=== PATIENT | female | born 1975 | race Hispanic/Latino ===

== ENCOUNTER 2020-10-01 13:43 | Outpatient (CLI) | payer OTHER, SELFPAY ==
--- NOTE | ~2020-10-01 | MR_ITS ---
EXAMINATION: MR knee LT wo con DATE: 10/01/2020 14:56 INDICATION: Left knee pain TECHNIQUE: Magnetic resonance imaging (MRI) of the left knee was performed without intravenous contra st. Sequences included coronal PD-weighted FSE, coronal PD-weighted FS FSE, sagittal T2-weighted FSE , sagittal PD-weighted FS FSE and axial PD weighted fat saturated FSE. COMPARISON: Right knee radiographs dated 09/27/2020 FINDINGS: Osseous/other: There is prominent metallic magnetic field artifact centered around antegrade intramedullary zenaida in t he distal metaphyseal region of the femur. Small geographic regions of red marrow reexpansion in the metaphyseal region of the proximal tibia. Marrow signal is otherwise normal with no reactive edema, f racture or pathologic marrow replacing process. Medial compartment: Longitudinal horizontal tear extending to the inferior articular surface of the posterior horn and bill dy of the medial meniscus. There is likely secondary minimal truncation of the normally sharp free ed ge along portions of the body and posterior horn. The tear is not clearly visualized extending to the anterior horn however there is a multilobulated para meniscal cyst extending 3.3 cm craniocaudally a nd 11 x 6 mm maximal transaxial dimensions on the periphery of the anterior horn suggesting possible occult extension involve the anterior horn. Partial-thickness cartilage loss with smooth chondral tamanna face along the medial tibial plateau. There is juxtaposed deep chondral ulceration with some chondral surface regularity along the anterior weightbearing medial femoral condyle without degenerative subc hondral changes. Progressively less severe partial thickness cartilage loss extending across the cent ral to posterior weightbearing medial femoral condyle. Lateral compartment: Lateral meniscus is normal. Articular cartilage is normal. Patellofemoral compartment: Partial-thickness patellar cartilage loss with smooth chondral surface most prominent along the infer ior patella. Trochlear cartilage is relatively preserved. Small marginal osteophytes are present. Ligaments and tendons: Anterior and posterior cruciate ligaments are normal. The medial collateral ligament and fibular guido ateral ligament complex are normal. The extensor mechanism is normal. The visualized medial and later al hamstring tendons as well as the iliotibial band are normal. Fluid: Physiologic amount of fluid in the joint space. No loose osteochondral bodies identified. IMPRESSION: 1. Medial meniscal tear with mild to moderate osteoarthritis with extensive moderate grade chondromal acia in the medial compartment. 2. Mild patellofemoral osteoarthritis. 3. Limited assessment of the metadiaphyseal region of the distal femur due to artifact from a prior f emoral antegrade intramedullary zenaida fixation. Reviewed, dictated and finalized at location A. IMPRESSION: 1. Medial meniscal tear with mild to moderate osteoarthritis with extensive mod erate grade chondromalacia in the medial compartment. 2. Mild patellofemoral osteoarthritis. 3. Limited assessment of the metadiaphyseal region of the distal femur due to a rtifact from a prior femoral antegrade intramedullary zenaida fixation.
== END 2020-10-01 13:44 | disposition home or self-care (01) ==
PROVIDERS: PCP Internal Medicine; Visit Provider Orthopaedic Surgery
DX: S83.242A Other tear of medial meniscus, current injury, left knee, initial encounter (principal); M17.12 Unilateral primary osteoarthritis, left knee; M94.262 Chondromalacia, left knee
CPT/HCPCS: 73721

== ENCOUNTER → 2020-12-29 03:28 | Outpatient (CLI) | payer OTHER, SELFPAY ==
[2020-12-29 16:43] LABS: SARS-CoV-2 RNA PCR Negative
== END ==
PROVIDERS: PCP Internal Medicine; Visit Provider Orthopaedic Surgery
DX: Z01.812 Encounter for preprocedural laboratory examination (principal); Z20.822 Contact with and (suspected) exposure to COVID-19
CPT/HCPCS: C9803; U0003; U0005

== ENCOUNTER 2021-01-01 02:36 | Day surgery (SDC) | payer OTHER, SELFPAY ==
[2020-12-27 12:11] VITALS: BMI 28.3
[2021-01-01] VITALS (9 sets, daily range): BP systolic 117–150; BP diastolic 62–87; PULSE 55–81; RESP 16–18; TEMP 36.8; O2SAT 92–98
--- NOTE | 2021-01-01 08:28 | WPDANESEPPF ---
Anes - Initial Pre Proc Eval Procedure: Operation Date: 01/01/21 15:00 Proposed Procedures p Left Knee Arthroscopy, Partial Meniscectomy - Viet Fernando MD <Howie Milton MD - Last Filed: 01/03/21 12:03> Date/Time: 01/01/21 08:28 <Howie Milton MD - Last Filed: 01/03/21 12:03> Surgeon: Viet Fernando MD <Howie Milton MD - Last Filed: 01/03/21 12:03> Pre Op Diagnosis: Left Knee Medial Meniscus Tear <Howie Milton MD - Last Filed: 01/03/21 12:03> Patient Data Age: 45 Gender: F Height: 1.57 m Weight: 70.31 kg <Howie Milton MD - Last Filed: 01/03/21 12:03> Allergies Allergy/AdvReac Type Severity Reaction Status Date / Time aspirin Allergy Severe Hives / Verified 01/01/21 12:56 Red Face ibuprofen Allergy Severe Hives / Verified 01/01/21 12:56 Red Face naproxen Allergy Severe Hives / Verified 01/01/21 12:56 Red Face Penicillins Allergy Severe Hives / Verified 01/01/21 12:56 Red Face NONSTEROIDAL Allergy Severe Hives / Uncoded 01/01/21 12:55 Red Face <Howie Milton MD - Last Filed: 01/03/21 12:03> Home Medications Medication Instructions Recorded Confirmed Type hydrocodone-acetaminophen 1 tablet PO Q6H PRN #30 tablet 01/01/21 Rx <Howie Milton MD - Last Filed: 01/03/21 12:03> Patient hx anesthesia problems: none <Dieudonne Noland DO - Last Filed: 01/01/21 13:23> Family hx anesthesia problems: none <Dieudonne Noland DO - Last Filed: 01/01/21 13:23> Results Review: All pre-operative results and documents have been reviewed as part of the pre-operative evaluation. <Howie Milton MD - Last Filed: 01/03/21 12:03> PMFSH Past Medical History Medical History: Medical History (Updated 01/01/21 @ 08:28 by Howie Milton MD) Osteoarthritis of left knee Overweight (BMI 25.0-29.9) Tear of medial meniscus of left knee <Howie Milton MD - Last Filed: 01/03/21 12:03> Surgical History Surgical History: Surgical History (Updated 01/01/21 @ 15:43 by Viet Fernando MD) Broken femur Intramedullary zenaida 1993 History of arthroscopy of left knee Partial medial meniscectomy January 01, 2021 <Howie Milton MD - Last Filed: 01/03/21 12:03> Family History Family History: Family History Mother Diabetes mellitus Father Hypertension <Howie Milton MD - Last Filed: 01/03/21 12:03> Social History Social History: Social History Smoking status: Current some day smoker Tobacco type: cigarettes Alcohol intake: current Drinks per week: 2 Alcohol use details: occasional Substance use: never Substance use type: does not use Living arrangements: with family Spiritual care concerns: No <Howie Milton MD - Last Filed: 01/03/21 12:03> Anes - Eval Final PreProcedure Day of Procedure 01/01/21 08:28 <Howie Milton MD - Last Filed: 01/03/21 12:03> Patient weight: overweight <Howie Milton MD - Last Filed: 01/03/21 12:03> Heart: regular rate and rhythm <Howie Milton MD - Last Filed: 01/03/21 12:03> Lungs: clear to auscultation and normal air movement <Howie Milton MD - Last Filed: 01/03/21 12:03> Airway: Mallampati scale class II <Howie Milton MD - Last Filed: 01/03/21 12:03> Neurological: alert and oriented <Howie Milton MD - Last Filed: 01/03/21 12:03> Last oral intake: >/= 8 hours <Howie Milton MD - Last Filed: 01/03/21 12:03> ASA classification: II <Howie Milton MD - Last Filed: 01/03/21 12:03> Emergent: no <Howie Milton MD - Last Filed: 01/03/21 12:03> Anesthetic plan: proceed <Howie Milton MD - Last Filed: 01/03/21 12:03> Anesthesia type and monitoring: general LMA <Howie Milton
[2021-01-01] MEDS: ACETAMINOPHEN 500 MG TABLET 1000 MG PO (13:01)
[2021-01-01] MEDS: LACTATED RINGERS 1,000 ML 30 ML IV CONT (13:23)
[2021-01-01] MEDS: ceFAZolin 2 GM/D5W 50 ML 2 GM/50 ML BAG IVPB (13:34)
--- NOTE | 2021-01-01 14:00 | WPDHPUPDATE1 ---
History and Physical Update Update Date/Time: 01/01/21 14:00 History and Physical has been reviewed, including an updated exam of the patient. There are NO changes in the patient's condition. Risks, benefits, and alternatives have been discussed and questions answered. Patient agrees to proceed with procedure.
[2021-01-01] MEDS: LIDOCAINE HCL 1% LOCAL INJ 20 ML VIAL INFILTRATE (14:53)
--- NOTE | 2021-01-01 15:44 | W.PM.PROC2 ---
Procedure Note - Detailed Date of Procedure 01/01/21 Pre-op Diagnosis Left Knee Medial Meniscus Tear Post-op Diagnosis same Procedure Performed Left knee arthroscopy partial medial meniscectomy Surgeon Viet Fernando MD Anesthesia general Description of Procedure The patient was identified and proper site identified. She was taken to the operating room and transferred to the OR table placing her supine taking care to pad the torso and extremities. After general anesthetic induction and intubation, a nonsterile tourniquet was placed high on the left thigh but was not inflated. The left lower extremity was positioned, prepped and draped in usual sterile fashion. 10 cc of 1% lidocaine was injected into the subcutaneous tissue in the area of the portals at start of the procedure, and an additional 10 at the end. The portals were established and the arthroscopy was carried out. Articular cartilage anteriorly showed some grade 2 changes as did the lateral articular cartilage. Some fraying of the apex of lateral meniscus noted but overall the lateral meniscus was stable. Anterior posterior cruciate ligaments were in continuity. Pouch and gutters were clear. Sizable medial femoral condyle spurs noted. Complex tearing of the medial meniscus from the posterior horn into the midbody noted. Extensive grade 3 and some early grade 4 changes appreciated medially with kissing lesion noted. Medial meniscus was contoured back to stable rim with basket forceps and a shaver. Arthrocare Wand was used for intra-articular hemostasis. The knee was flushed with a copious amount of arthroscopic fluid and equipment was removed. Portals were closed with three O nylon suture and a sterile dressing was applied. She tolerated the procedure well, was awakened, extubated and taken to recovery area in stable condition. There were no known intraoperative complications. Estimated blood loss was negligible. She received perioperative antibiotics. Estimated Blood Loss 10 Drains No Packing No Pathology none sent Complications No immediate complications Condition stable Disposition PACU
[2021-01-01] MEDS: fentaNYL CITRATE INJ (*CRX) 100 MCG/2 ML VIAL 25 MCG IV PUSH ×4 (15:56→16:14)
[2021-01-01] MEDS: oxyCODONE HCL (*CRX) 5 MG TAB IR PO (16:41)
== END 2021-01-01 17:35 | disposition home or self-care (01) ==
PROVIDERS: PCP Internal Medicine; Visit Provider Orthopaedic Surgery
PROC: (CPT 29870; principal; 2021-01-01 15:00)
DX: M23.204 Derangement of unspecified medial meniscus due to old tear or injury, left knee (principal); M17.12 Unilateral primary osteoarthritis, left knee; F17.210 Nicotine dependence, cigarettes, uncomplicated
CPT/HCPCS: 29881; A9270; C9803; J0690; J1100; J2250; J2370; J2405; J2704; J3010; J7120; U0003; U0005

== ENCOUNTER 2021-02-07 13:30 | Outpatient (RCR) | payer OTHER, SELFPAY ==
--- NOTE | 2021-01-03 15:21 | PTOPEVAL ---
Thank you for referring Kervin Castro to [facility].? The patient is scheduled to be seen for therapy? 2 x/week for 5 weeks. Please review, sign, date and return this plan of care CECILIA. I agree with and certify that the following plan of care is medically necessary. Referring Physician Date Attending Provider: Viet Fernando MD Diagnosis Left knee arthroscopy partial medial meniscectomy Onset July 2019 Additional Evaluation Detail left knee arthroscopic surgery 01/01/21. She has 2 steps at home. She works at the [employer]. Subjective Information She did something to her knee Query Text:As Reported By Patient/ when she was moving in July 2019. She tried to injections to the knee without improved symptoms. No previous therapy. She is currently walking with crutches NWB on left LE. 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 Reports difficulty with sleeping due to knee pain. Using ice for pain relief Pain Assessment Left Knee(s) Reported Pain Level 7 Pain Description Aching,Dull Pain Frequency Continuous Lowest Pain Intensity 7 Greatest Pain Intensity 10 Pain Aggravating Factors ADL's,Bending,Exercise/ Activity,Lifting,Stair Climbing,Walking,Weight Bearing/Standing Lower Extremity Range of Motion Knee Range of Motion Left Knee Flexion Range of Motion - Active 80 Knee Flexion Range of Motion - Passive 90 Knee Extension Range of Motion - Passive -5 Knee Range of Motion Limitations Edema,Pain,Soft Tissue Restriction Lower Extremity Muscle Strength Testing Hip Strength Left Hip Flexion Strength 3- Fair - Hip Extension Strength 3- Fair - Hip Abduction Strength 2- Poor - Hip Adduction Strength 2 Poor Knee Strength Left Knee Flexion Strength 3- Fair - Knee Extension Strength 3- Fair - Ankle Strength Left Ankle Dorsiflexion Strength 4- Good - Ankle Plantarflexion Strength 3+ Fair + Ankle Eversion Strength 4- Good - Ankle Inversion Strength 4- Good - Posture Posture Standing Position Head/C-Spine Posture Forward Head Shoulder Posture (L) Elevated,(R) Elevated Weight Distribution Weight Shifted Right,Decreas
--- NOTE | 2021-01-08 16:09 | PCPTNOTE ---
Pt arrived 25 minutes late for therapy session, opted to reschedule appointment due to being unable to get a full 45 min treatment.
--- NOTE | 2021-01-17 16:24 | PCPTNOTE ---
Patient called & cancelled scheduled appointment this date due to broke a tooth and was able to get into the dentist today at the same time as therapy appointment.
--- NOTE | 2021-01-29 16:25 | PCPTNOTE ---
Patient did not show up for scheduled appointment this date. Called and spoke with Pt, She apologized and stated to have forgotten about appointment. Reminded Pt of upcoming appointment on 01/31/21 @16:00. Pt stated she would be there.
--- NOTE | 2021-01-31 18:07 | PCPTNOTE ---
Patient did not show up for scheduled appointment this date.
--- NOTE | 2021-02-05 16:27 | PCPTNOTE ---
Patient did not show up for scheduled appointment this date; called and left voicemail for reminder on next appointment being reeval and to call if need to reschedule.
--- NOTE | 2021-02-07 13:44 | PCPTNOTE ---
Patient did not show up for scheduled appointment this date. Left message regarding no show. Reminded her of the cancelation policy. Will plan to DC per policy unless she calls today to reschedule.
--- NOTE | 2021-02-19 07:41 | PCPTNOTE ---
Admitting Provider: Attending Provider: Viet Fernando MD Patient:Kervin Castro Date of :1975 Physical Therapy Discharge Note Patient has not returned for any further treatments since 02/07/2021, therefore she will be discharged at this time. Patient?s initial visit was on 01/03/2021 12:30 and she had a total of 5 visits with 5 cancel/no show visits. The goals have been not met. Thank you for referring this patient to [facility]. Please review, sign, date and return this discharge summary CECILIA. I have been updated about the patient's current status and I agree with discharge from the above service at this time. Referring Physician Date
== END 2021-02-19 12:15 | disposition home or self-care (01) ==
LOC: ANHPT 13:30
PROVIDERS: PCP Internal Medicine; Visit Provider Orthopaedic Surgery
DX: Z48.89 Encounter for other specified surgical aftercare (principal); Z98.890 Other specified postprocedural states
CPT/HCPCS: 97014; 97110; 97162; G0283